=== PATIENT | male | born 1975 | race Caucasian/White ===

== ENCOUNTER 2017-03-29 15:13 | Emergency (ER) | payer MEDICAID, OTHER ==
[2017-03-29 15:28] VITALS: TEMP 100.2
[2017-03-29] MEDS ORDERED: ONDANSETRON 4 MG/2 ML VIAL IVP ONE (15:29)
[2017-03-29] MEDS ORDERED: NS 1,500 ML IV ONE (15:30)
--- NOTE | 2017-03-29 15:33 | EDPHY ---
H & P Stated Complaint: ETOH x 1 week, wants detox Time Seen by Provider: 03/29/17 15:24 HPI/ROS: CHIEF COMPLAINT: Alcohol intoxication HISTORY OF PRESENT ILLNESS: This patient is a 41-year-old male with history of PTSD who presents to the Emergency Department by EMS for ETOH intoxication. It appears that he called the [facility] requesting transfer to the ED as he was concerned about withdrawing from alcohol and has a history of alcohol- withdrawal seizures. He was previously sober for eleven years until one week ago when his left him, prompting him to begin drinking again. He states that his left him because she was afraid of him (he denies hurting his or anyone else). He reports that memories from his childhood have started to come back to him over the past few weeks which have caused him to begin thinking violent thoughts, though he did not expand on these. He denies intent to harm himself or others. He denies suicidality. He is followed by Dr. Maxine Moreno, psychologist, in [place]. He takes 4mg Klonopin daily to treat his PTSD. REVIEW OF SYSTEMS: A ten point review of systems was performed and is negative with the exception of the items mentioned in the HPI. Source: Patient Exam Limitations: Intoxication - Medical/Surgical History PMH: Fibromyalgia, depression, anxiety. Other PMH: Etoh 11 years sobriety up to March 2017. PTSD. Anxiety - Social History Drug Use: Marijuana (heavy use) Additional Social History: Smokes marijuana frequently. No tobacco use. No alcohol for 11 years (h/o abuse ) until last week. Business medical health researcher. - Physical Exam Exam: General Appearance: Alert. Intoxicated. Vital signs reviewed. Blood pressure 150/109, heart rate 145 at triage. Eyes: Pupils equal and round, no conjunctival injection, no discharge. Anicteric. ENT, Mouth: Mucous membranes are moist, no oropharyngeal erythema or edema. Neck: No lymphadenopathy, supple. Respiratory: Lungs are clear to auscultation; no wheezes, rales, or rhonchi. Cardiovascular: Tachycardic, regular rhythm; no murmur, rub, or gallop. Gastrointestinal: Abdomen is soft and nontender, no masses or organomegaly, bowel sounds normal. Skin: Warm and dry, no rashes on exposed skin, normal color. Back: Nontender to palpation over the thoracolumbar spine. No CVAT. Extremities: No lower extremity edema, no calf tenderness or swelling. Neurological: Alert and oriented. Moving all four extremities easily and equally. Psychiatric: Normal affect. No agitation. Constitutional: Initial Vital Signs Temperature (C) 37.9 C 03/29/17 15:13 Heart Rate 145 H 03/29/17 15:13 Respiratory Rate 20 03/29/17 15:13 Blood Pressure 150/109 H 03/29/17 15:13 O2 Sat (%) 92 03/29/17 15:13 O2 Delivery Mode Room Air Allergies/Adverse Reactions: No Known Allergies Allergy (Verified 03/29/17 15:27) Home Medications: Medication Instructions Recorded Cbd 03/29/17 Klonopin 03/29/17 Loratadine 03/29/17 Medical Decision Making ED Course/Re-evaluation: 41-year-old intoxicated male relapsing from eleven years of sobriety presents concerned of potential effects of alcohol withdrawal and wishing support with detox. He reports violent thoughts that appear to be secondary to PTSD related to events in his childhood. No suicidal or homicidal ideation, hallucinations, or anxiety. He is tachycardic at time of arrival. His exam is otherwise benign. Will proceed to consult with his psychologist. Blood alcohol 235 per breathalyzer. IV established. 1 L IV normal saline administered for dehydration/tachycardia/ signs of withdrawal. We have been unable to reach the patient's psychologist by phone. However, the patient continues to decline intent to harm himself or others. It seems appropriate that he follow-up as an outpatient with his psychologist for further evaluation of his mental health concerns. I do not think that he needs to be on a mental health hold. I offered the patient the option of being transferred to the [facility] for detox. He is agreeable to this. We will arrange taxi transport and provide customary return precautions. He will be on the Librium protocol. Differential Diagnosis: Considered a differential diagnosis that includes but is not limited to alcohol intoxication, poly substance abuse, suicidality, homicidality, psychosis, krupa , depression, and PTSD. - Data Points Medications Given: Discontinued Medications Ondansetron HCl (Zofran) 4 mg IVP EDNOW ONE Stop: 03/29/17 15:30 Last Admin: 03/29/17 15:35 Dose: 4 mg Departure - Departure Disposition: Home, Routine, Self-Care Clinical Impression: Alcohol intoxication Qualifiers: Complication of substance-induced condition: uncomplicated Qualified Code(s): F10.120 - Alcohol abuse with intoxication, uncomplicated Condition: Good Instructions: Abuse of Alcohol (ED), Alcohol Withdrawal (ED) Additional Instructions: 1. Go directly to the [facility] for detoxification from alcohol as we discussed. 2. Follow-up with your psychologist to continue to receive treatment for your mental health concerns. We have also included a referral to [facility] if you would like to follow-up with a psychiatrist for further evaluation. 3. Please return to the Emergency Department immediately for: seizure, confusion , severe headache, uncontrollable vomiting, increasing anxiety, thoughts of harming yourself or others, or for other serious concerns. Referrals: [facility] [Outside] - As per Instructions [facility] [Outside] - As per Instructions Report Scribed for: Praveena Vora Report Scribed by: Елена Fitzpatrick Date of Report: 03/29/17 Time of Report: 15:56 Physician Review and Approval Statement: 03/29/17 15:33 Portions of this note were transcribed by the medical imaging specialist. I, Dr. Praveena Vora, personally performed the history, physical exam, and medical decision- making; and confirmed the accuracy of the information in the transcribed note.
[2017-03-29] MEDS ORDERED: CHLORDIAZEPOXIDE 25MG PREPK#6 BTL TAKEHOME ONE (16:24)
[2017-03-29 18:20] VITALS: BP 134/91; PULSE 133; RESP 16; O2SAT 98
== END 2017-03-29 18:00 | disposition home or self-care (01) ==
LOC: EDUNIT# → CED 15:13
DX: F10.120 Alcohol abuse with intoxication, uncomplicated (principal)
CPT/HCPCS: 96374; J2405